=== PATIENT | female | born 1990 | race Caucasian/White ===

== ENCOUNTER 2017-03-13 23:57 | Outpatient (CLI) | payer BC, MEDICAID | END 2017-03-14 01:00 | disposition home or self-care (01) | LOC: OBT 23:57 → L-D 23:58 | DX: O26.892 Other specified pregnancy related conditions, second trimester (principal); Z3A.23 23 weeks gestation of pregnancy; R05 Cough | CPT/HCPCS: Z7500 ==

== ENCOUNTER 2017-06-30 08:49 | Inpatient (IN) | payer BC ==
[2017-06-30] MEDS ORDERED: CARBOPROST 250 MCG INJ IM ×2 (09:00→13:00)
[2017-06-30] MEDS ORDERED: OXYTOCIN 30 UNITS/LR 500 ML IV ×2 (09:00→13:00)
[2017-06-30] MEDS ORDERED: METHYLERGONOVINE 0.2 MG INJ IM ×2 (09:00→13:00)
[2017-06-30] MEDS ORDERED: MISOPROSTOL 200 MCG TAB PR ×2 (09:00→13:00)
[2017-06-30] MEDS ORDERED: CEFAZOLIN 2 GM/50 ML (PMX) 50 ML IV (09:00)
[2017-06-30] MEDS: LACTATED RINGER'S 1,000 ML IV ×2 (09:16→10:45)
[2017-06-30 09:32] LABS: ADD MAN DIFF? NO
[2017-06-30 09:37] LABS: WHITE BLOOD COUNT 6.5 10^3/ul (4.8-10.8)
[2017-06-30 09:37] LABS: BASOPHILS % 0.3 % (0.0-2.0); EOSINOPHILS # 0.2 10^3/ul (0.0-0.5); EOSINOPHILS % 3.7 % (0.0-7.0); HEMATOCRIT 34.6 % (37.0-47.0); HEMOGLOBIN 11.2 g/dl (12.0-16.0); LYMPHOCYTES # 1.4 10^3/ul (0.8-2.9); LYMPHOCYTES % 21.9 % (15.0-51.0); MEAN CORPUSCULAR HEMOGLOBIN 24.9 pg (29.0-33.0); MEAN CORPUSCULAR HGB CONC 32.4 g/dl (32.0-37.0); MEAN CORPUSCULAR VOLUME 77.1 fl (82.0-101.0); MEAN PLATELET VOLUME 11.5 fl (7.4-10.4); MONOCYTE # 0.3 10^3/ul (0.3-0.9); MONOCYTES % 4.8 % (0.0-11.0); NEUTROPHIL # 4.5 10^3/ul (1.6-7.5); PLATELET COUNT 268 10^3/UL (140-415); RED BLOOD COUNT 4.49 10^6/ul (4.20-5.40); RED CELL DISTRIBUTION WIDTH 15.8 % (11.5-14.5)
[2017-06-30 10:07] LABS: INR 0.86; PROTIME 11.8 Sec (11.9-14.9); PT RATIO 0.9
[2017-06-30 10:08] LABS: PARTIAL THROMBOPLASTIN TIME 32.5 Sec (25.0-35.0)
[2017-06-30] MEDS: CITRIC ACID/SODIUM CITRATE 15 ML CUP PO (10:57)
[2017-06-30] MEDS: ONDANSETRON 4 MG INJ IV ×2 (10:58→13:41)
[2017-06-30] MEDS: CEFAZOLIN 3 GM in DEXTROSE 5% 100 ML IV (11:05)
[2017-06-30] MEDS ORDERED: TRIMETHOBENZAMIDE 100 MG/ML VIAL IM ×2 (12:30)
[2017-06-30] MEDS ORDERED: morphine 2 MG INJ IV ×2 (12:30)
[2017-06-30] MEDS ORDERED: EPHEDrine SULFATE 50 MG/5 ML SYG IV (12:30)
[2017-06-30] MEDS ORDERED: MIDAZOLAM 1 MG/ML 2 ML INJ IV (12:30)
[2017-06-30] MEDS ORDERED: LABETALOL HCL 20MG INJ IV (12:30)
[2017-06-30] MEDS ORDERED: FENTAnyl 50 MCG/ML VIAL IV ×2 (12:30)
[2017-06-30] MEDS ORDERED: MEPERIDINE 25 MG INJ IV (12:30)
[2017-06-30] MEDS ORDERED: OXYCODONE/ACETAMINOPHEN (5/325) TAB PO ×2 (12:30)
[2017-06-30] MEDS ORDERED: DIPHENHYDRAMINE 50 MG INJ IV ×2 (12:30)
[2017-06-30] MEDS ORDERED: ALBUTEROL 0.083% (NEB) 2.5 MG/3 ML AMP HHN (12:30)
[2017-06-30] MEDS ORDERED: HYDROmorphONE (0.2 MG/ML) 10ML SYG IV ×3 (12:30)
[2017-06-30] MEDS ORDERED: NALBUPHINE HCL (10 MG/1 ML) INJ IV (12:30)
[2017-06-30] MEDS ORDERED: NALOXONE (0.4 MG/ML) INJ IV (12:30)
[2017-06-30] MEDS ORDERED: ONDANSETRON 4 MG INJ IV (12:30)
[2017-06-30] MEDS ORDERED: hydrALAzine 20 MG INJ IV (12:30)
[2017-06-30] MEDS ORDERED: IPRATROPIUM (NEB) 0.5 MG/2.5 ML AMP HHN (12:30)
[2017-06-30] MEDS ORDERED: LACTATED RINGER'S 1,000 ML IV (12:36)
[2017-06-30 12:39] LABS: HEPATITIS B SURFACE ANTIGEN NEGATIVE (NEGATIVE)
[2017-06-30] MEDS ORDERED: METHYLERGONOVINE 0.2 MG TAB PO (13:00)
[2017-06-30] MEDS ORDERED: HYDROCODONE/APAP (5/325) TAB PO (13:00)
[2017-06-30] MEDS: OXYTOCIN 30 UNITS/LR 500 ML IV ×2 (13:22→16:22)
[2017-06-30] MEDS: IBUPROFEN 800 MG TAB PO ×2 (14:00→22:00)
[2017-06-30] MEDS: FENTAnyl 50 MCG/ML VIAL IV (15:37)
[2017-06-30 17:26] LABS: RAPID PLASMA REAGIN NONREACTIVE (NR)
[2017-06-30] MEDS: CEFAZOLIN 1 GM/50 ML (PMX) 50 ML IVPB (17:53)
[2017-06-30] MEDS: SENNA/DOCUSATE NA (8.6MG/50MG) TAB PO (21:21)
[2017-07-01] MEDS: KETOROLAC 30 MG INJ IV ×2 (03:50→12:19)
[2017-07-01] MEDS: LACTATED RINGER'S 1,000 ML IV (03:51)
[2017-07-01] MEDS: IBUPROFEN 800 MG TAB PO ×3 (05:51→21:42)
[2017-07-01] MEDS ORDERED: MAGNESIUM HYDROXIDE 30ML CUP PO (08:00)
[2017-07-01] MEDS ORDERED: BISACODYL 10 MG SUPP PR (08:00)
[2017-07-01 08:52] LABS: ADD MAN DIFF? NO
[2017-07-01 08:59] LABS: WHITE BLOOD COUNT 10.9 10^3/ul (4.8-10.8)
[2017-07-01 08:59] LABS: BASOPHILS % 0.1 % (0.0-2.0); EOSINOPHILS # 0.1 10^3/ul (0.0-0.5); EOSINOPHILS % 0.7 % (0.0-7.0); HEMATOCRIT 26.3 % (37.0-47.0); HEMOGLOBIN 8.5 g/dl (12.0-16.0); LYMPHOCYTES # 1.1 10^3/ul (0.8-2.9); LYMPHOCYTES % 9.7 % (15.0-51.0); MEAN CORPUSCULAR HEMOGLOBIN 25.4 pg (29.0-33.0); MEAN CORPUSCULAR HGB CONC 32.3 g/dl (32.0-37.0); MEAN CORPUSCULAR VOLUME 78.5 fl (82.0-101.0); MEAN PLATELET VOLUME 11.8 fl (7.4-10.4); MONOCYTE # 0.6 10^3/ul (0.3-0.9); MONOCYTES % 5.8 % (0.0-11.0); NEUTROPHIL # 9.1 10^3/ul (1.6-7.5); NEUTROPHILS % 83.2 % (39.0-77.0); PLATELET COUNT 212 10^3/UL (140-415); RED BLOOD COUNT 3.35 10^6/ul (4.20-5.40); RED CELL DISTRIBUTION WIDTH 16.1 % (11.5-14.5)
[2017-07-01] MEDS: SENNA/DOCUSATE NA (8.6MG/50MG) TAB PO ×2 (09:11→20:41)
[2017-07-01 09:24] LABS: ANION GAP 9 (8-16); BLOOD UREA NITROGEN 9 mg/dl (7-20); CARBON DIOXIDE 24 mmol/L (21-31); CHLORIDE 108 mmol/L (97-110); CREATININE 0.72 mg/dl (0.44-1.00); GLUCOSE 71 mg/dl (70-220); POTASSIUM 4.1 mmol/L (3.5-5.1); SODIUM 137 mmol/L (135-144)
[2017-07-01] MEDS: HYDROCODONE/APAP (5/325) TAB PO (18:25)
[2017-07-01] MEDS: MAGNESIUM HYDROXIDE 30ML CUP PO (20:41)
[2017-07-01] MEDS: LANOLIN 7 GM TUBE TOP (21:42)
[2017-07-02] MEDS: OXYCODONE/ACETAMINOPHEN (5/325) TAB PO (00:39)
[2017-07-02] MEDS: IBUPROFEN 800 MG TAB PO ×3 (05:58→21:40)
[2017-07-02] MEDS: BISACODYL 10 MG SUPP PR (05:58)
[2017-07-02] MEDS: SENNA/DOCUSATE NA (8.6MG/50MG) TAB PO ×2 (09:56→21:09)
[2017-07-02] MEDS ORDERED: OXYTOCIN 10 UNIT INJ (22:25)
[2017-07-02] MEDS ORDERED: PHENYLephrine (100 MCG/ML) 5ML SYG (22:25)
[2017-07-02] MEDS ORDERED: morphine SULFATE/PF (10 MG/10 ML) INJ (22:25)
[2017-07-02] MEDS ORDERED: METOCLOPRAMIDE 10 MG INJ (22:25)
[2017-07-02] MEDS ORDERED: FENTAnyl 50 MCG/ML VIAL (22:25)
[2017-07-03] MEDS: IBUPROFEN 800 MG TAB PO ×2 (06:02→14:15)
[2017-07-03] MEDS: LANOLIN 7 GM TUBE TOP (06:39)
[2017-07-03] MEDS: MEASLES,MUMPS,RUBELLA VACCINE INJ SC* (09:00)
[2017-07-03] MEDS: DIPHTH/TET/ACEL PERTUSS (ADULT) 0.5 ML VIAL IM* (09:00)
[2017-07-03] MEDS: SENNA/DOCUSATE NA (8.6MG/50MG) TAB PO (09:00)
[2017-07-03 11:43] LABS: ADD MAN DIFF? NO
[2017-07-03 11:51] LABS: WHITE BLOOD COUNT 8.3 10^3/ul (4.8-10.8)
[2017-07-03 11:51] LABS: BASOPHILS % 0.1 % (0.0-2.0); EOSINOPHILS # 0.3 10^3/ul (0.0-0.5); HEMATOCRIT 24.8 % (37.0-47.0); HEMOGLOBIN 7.8 g/dl (12.0-16.0); LYMPHOCYTES % 11.9 % (15.0-51.0); MEAN CORPUSCULAR HEMOGLOBIN 25.3 pg (29.0-33.0); MEAN CORPUSCULAR HGB CONC 31.5 g/dl (32.0-37.0); MEAN CORPUSCULAR VOLUME 80.5 fl (82.0-101.0); MEAN PLATELET VOLUME 11.3 fl (7.4-10.4); MONOCYTE # 0.4 10^3/ul (0.3-0.9); MONOCYTES % 4.2 % (0.0-11.0); NEUTROPHIL # 6.6 10^3/ul (1.6-7.5); NEUTROPHILS % 79.6 % (39.0-77.0); PLATELET COUNT 248 10^3/UL (140-415); RED BLOOD COUNT 3.08 10^6/ul (4.20-5.40); RED CELL DISTRIBUTION WIDTH 16.7 % (11.5-14.5)
== END 2017-07-03 18:48 | disposition home or self-care (01) | DRG 765 ==
LOC: L-D 08:49 → PP1 16:04
PROVIDERS: Obstetrics & Gynecology
PROC: 10D00Z1 Extraction of Products of Conception, Low, Open Approach (ICD-10-PCS; principal; 2017-06-30 15:30)
PROC: 0DNW0ZZ Release Peritoneum, Open Approach (ICD-10-PCS; 2017-06-30 15:30)
DX: O34.211 Maternal care for low transverse scar from previous cesarean delivery (principal); Z68.42 Body mass index [BMI] 45.0-49.9, adult; O99.214 Obesity complicating childbirth; E66.9 Obesity, unspecified; O99.62 Diseases of the digestive system complicating childbirth; K66.0 Peritoneal adhesions (postprocedural) (postinfection); Z3A.39 39 weeks gestation of pregnancy; Z37.0 Single live birth
CPT/HCPCS: 80048; 85025; 85610; 85730; 86592; 86850; 86900; 86901; 87340; 99464